=== PATIENT | male | born 1965 ===

== ENCOUNTER 2017-06-10 15:05 | Emergency (ER) | payer OTHER ==
[2017-06-10 15:45] VITALS: BP 158/103; PULSE 74; RESP 20; TEMP 97.8; O2SAT 97
--- NOTE | 2017-06-10 16:38 | C.PDOC ---
History Of Present Illness Pt is a 51 yr old male with PMHx of seizure disorder (last seizure 1.5 weeks ago ) and HTN, presents to the ER for evaluation of right sided jaw pain for the past 1.5 weeks and a "ball" to the jaw area since morning today. Patient states the swelling resolved on its own. Patient denies fever, chills, chest pain, SOB , nausea, vomiting, headache, weakness or numbness. PMD: Dr. Issa . Time Seen by Provider: 06/10/17 16:04 Chief Complaint (Nursing): Medical Clearance History Per: Patient History/Exam Limitations: no limitations Onset/Duration Of Symptoms: Days Past Medical History Reviewed: Historical Data, Nursing Documentation, Vital Signs Vital Signs: Last Vital Signs Temp 97.8 F 06/10/17 15:41 Pulse 74 06/10/17 15:41 Resp 20 06/10/17 15:41 BP 158/103 H 06/10/17 15:41 Pulse Ox 97 06/10/17 16:44 - Medical History PMH: HTN, Seizures Family History: States: Diabetes - Social History Hx Tobacco Use: Yes Hx Alcohol Use: No Hx Substance Use: No - Immunization History Hx Tetanus Toxoid Vaccination: No Hx Influenza Vaccination: No Hx Pneumococcal Vaccination: No Review Of Systems Except As Marked, All Systems Reviewed And Found Negative. Constitutional: Positive for: Other (Right sided jaw pain.). Negative for: Fever, Chills Cardiovascular: Negative for: Chest Pain Respiratory: Negative for: Shortness of Breath Neurological: Negative for: Weakness, Numbness, Headache Physical Exam - Physical Exam Appears: Well, Non-toxic, No Acute Distress Skin: Warm, Dry, No Rash Head: Atraumatic, Normacephalic, Other (Normal ROM of the jaw. No clicking. ) Eye(s): bilateral: Normal Inspection Ear(s): Bilateral: Normal Nose: Normal Oral Mucosa: Moist Tongue: Normal Appearing Lips: Normal Appearing, No Swelling Throat: Normal Neck: Normal, Normal ROM, Supple Lymphatic: No Adenopathy Chest: Symmetrical, No Tenderness Cardiovascular: Rhythm Regular, No Murmur Respiratory: Normal Breath Sounds, No Rales, No Rhonchi, No Stridor, No Wheezing Extremity: Normal ROM, No Swelling Extremity: Bilateral: Atraumatic Neurological/Psych: Oriented x3, Normal Speech, Normal Motor ED Course And Treatment O2 Sat by Pulse Oximetry: 97 (RA) Pulse Ox Interpretation: Normal Medical Decision Making Medical Decision Making: Initial Impression: Jaw swelling resolved Initial Plan: Follow up with dentist as an outpatient . Disposition - Disposition Disposition: HOME/ ROUTINE Disposition Time: 16:36 Condition: IMPROVED Additional Instructions: Mr. Gonzalez, thank you for letting us take care of you today. Return to the ER if your symptoms worsen, or if any problems. Take over the counter pain medication if the pain returns. Follow up with Dr. Issa next week for a re-evaluation, or follow up with your dentist so he/she can take dental xrays of your jaw. Instructions: Temporomandibular Disorder (ED) Forms: Catheter Connections (Syriac) Print Language: MONGOLIAN - Clinical Impression Clinical Impression: Jaw pain - Scribe Statement The provider has reviewed the documentation as recorded by the Frandyibjeovanny Masters Provider Attestation: All medical record entries made by the Frandyibjeovanny were at my direction and personally dictated by me. I have reviewed the chart and agree that the record accurately reflects my personal performance of the history, physical exam, medical decision making, and the department course for this patient. I have also personally directed, reviewed, and agree with the discharge instructions and disposition.
== END 2017-06-10 16:49 | disposition home or self-care (01) ==
LOC: C.ER 15:05
DX: R68.84 Jaw pain (principal)